=== PATIENT | female | born 1980 | race Two or more races ===

== ENCOUNTER 2019-04-22 14:06 | Emergency (ER) | payer OTHER ==
[~2019-04-22] VITALS: Ht 160 cm; Wt 59.0 kg
[2019-04-22] MEDS ORDERED: FIORICET PO (14:26)
== END 2019-04-22 23:11 | disposition home or self-care (01) ==
LOC: ER 14:06
DX: R19.7 Diarrhea, unspecified (principal)

== ENCOUNTER 2019-07-25 19:53 | Emergency (ER) | payer OTHER ==
[~2019-07-25] VITALS: Ht 172.7 cm; Wt 65.8 kg
[~2019-07-25 19:53] MED LIST: FIORICET PO
== END 2019-07-26 01:38 | disposition home or self-care (01) ==
LOC: ER 19:53
DX: K52.9 Noninfective gastroenteritis and colitis, unspecified (principal)